=== PATIENT | female | born 1980 | race Caucasian/White ===

== ENCOUNTER 2019-01-07 11:27 | Day surgery (SDC) | payer BC ==
[2019-01-07 12:13] VITALS: BP 124/78; TEMP 98.5; BMI 55.2
[2019-01-07] MEDS ORDERED: Dextrose 5%-Lactated Ringers 1,000 ML IV SCH (12:45)
[2019-01-07] MEDS ORDERED: Ondansetron PF 4 MG/2 ML Vial IVP SCH (12:45)
[2019-01-07] MEDS ORDERED: Thiamine HCl 200 MG/2 ML VIAL SLOW IVP SCH (12:45)
--- NOTE | 2019-01-07 13:19 | HP ---
TIME OF EVALUATION: 12:30 until 12:49. LOCATION: L and D in antepartum bed 2. This is a patient of Dr. Blakely. REASON FOR EVALUATION: Nausea and vomiting times this morning at 35 weeks. HISTORY OF PRESENT ILLNESS: This is a 38-year-old G2, P1, with an EDC of February 11, who is currently at 35 weeks. Her first delivery was by at 39 weeks due to being breech and having preeclampsia. She arrives now for evaluation for nausea, vomiting, and some diarrhea since about 5 o'clock this morning. She has no vaginal bleeding or leakage of fluid. She states good movement. She denies any fevers at home or chills. She denies any emesis containing blood. REVIEW OF SYSTEMS: Complete review of systems was checked and is otherwise negative unless specified in the HPI. PAST MEDICAL HISTORY: She has a history of asthma as a child, but no acute exacerbations recently. PAST SURGICAL HISTORY: Significant only for the . ALLERGIES: NONE. SOCIAL HISTORY: Negative for alcohol, tobacco, or drug use. FAMILY HISTORY: Otherwise, noncontributory. PHYSICAL EXAMINATION: VITAL SIGNS: Her temperature is 98.5, blood pressure is 124/78, pulse is 109, and respirations are 18. GENERAL: Clinically, she is in no acute distress. She is conversive and without acute decompensation. ABDOMEN: Large/obese, but it is nontender. There is no rebound or rigidity. PELVIC: Deferred as there is no evidence of labor. On monitoring, the nonstress test is reactive with a heart rate of about 130 to 150s. There were no contractions on tocodynamometer. On pelvic exam, pelvic exam was deferred as there is no evidence of labor, but there is no gross clinical evidence of rupture of membranes or vaginal bleeding. ASSESSMENT: This is a 38-year-old, G2, P1, at 35 weeks, who desires a trial of labor after with Dr. Blakely when labor occurs. There is no evidence of current labor. She does have nausea and vomiting since this morning and is here for evaluation. She has no other sick contacts or history of foreign travel. PLAN: 1. I have ordered a CBC and a CMP. 2. I have ordered a cath UA to rule out any bacteriuria as an atypical presentation, and also to check her ketones. 3. I have ordered her for D5 LR, IV fluid hydration and I have also ordered a one-time dose of thiamine slow of IV push to go with her D5 LR. 4. I have ordered her Zofran as p.r.n. medication. 5. The patient does not appear clinically ill and does not appear to be in eminent labor. 6. I anticipate sending the patient home as long as her laboratory data reveals no acute abnormality. Job ID: [id number]
[2019-01-07 13:45] LABS: Hemoglobin 12.4 g/dL (12.0-16.0); Mean Corpuscular Hemoglobin 25.3 pg (27.0-31.0); Mean Platelet Volume 8.4 fL (7.4-10.4); Platelet Count 250 thou/uL (130-400); RBC Distribution Width 14.3 % (11.5-14.5); Red Blood Cell (RBC) Count 4.88 mill/uL (4.20-5.40); White Blood Cell (WBC) Count 15.2 thou/uL (4.8-10.8)
[2019-01-07 14:03] LABS: Bilirubin Negative (Negative); Blood, Urine Negative (Negative); Clarity CLEAR (Clear); Glucose, Urine (Dipstick) Negative (Negative); Leukocyte Negative (Negative); Nitrite Negative (Negative); Protein, Urine (Dipstick) Negative (Neg-Trace); Specific Gravity, Urine 1.025 (1.002-1.036)
--- NOTE | 2019-01-07 14:06 | PDOC.EVN ---
Event Note - Event Note Event Note: D5LR given and feels better..1 liter Thiamine pending CBC with mild luecocytosis CMP and urine still pending in lab
[2019-01-07 14:13] LABS: ALT (SGPT) 13 U/L (8-55); AST (SGOT) 17 U/L (5-34); Albumin 3.3 g/dL (3.5-5.0); Alkaline Phosphatase 135 U/L (40-150); Anion Gap 15 mmol/L (10-20); BUN (Urea Nitrogen) 11 mg/dL (7.0-18.7); Bilirubin, Total 0.5 mg/dL (0.2-1.2); Calc. Creatinine Clearance 232 mL/min (70-130); Calcium 9.3 mg/dL (7.8-10.44); Carbon Dioxide 20 mmol/L (22-29); Chloride 104 mmol/L (98-107); Estimated GFR-MDRD 83; Globulin 3.3 g/dL (2.4-3.5); Glucose 161 mg/dL (70-105); Potassium 4.3 mmol/L (3.5-5.1); Protein, Total 6.6 g/dL (6.0-8.3); Sodium 135 mmol/L (136-145)
[2019-01-07 14:22] LABS: Bacteria/HPF None Seen HPF (None Seen); Hyaline Casts/LPF NONE SEEN LPF (0-3 Hyaline); RBC/HPF 0-3 HPF (0-3); Squamous Epithelial 0-3 HPF (0-3); WBC/HPF 0-3 HPF (0-3)
[2019-01-07 14:23] LABS: Urine Culture Reflex No No
--- NOTE | 2019-01-07 14:45 | PDOC.EVN ---
Event Note - Event Note Event Note: CMP ok Mod ketones on UA and can tolerate ice As she feels better, ok for outpatient care. Possible gastroenteritis Home on no meds as well now
== END 2019-01-07 16:20 | disposition home or self-care (01) ==
LOC: L&D/OP 11:27
PROVIDERS: ATTEND Obstetrics & Gynecology
DX: O21.2 Late vomiting of pregnancy (principal); O99.513 Diseases of the respiratory system complicating pregnancy, third trimester; J45.909 Unspecified asthma, uncomplicated; Z3A.35 35 weeks gestation of pregnancy
CPT/HCPCS: 36415; 51701; 80053; 81001; 85027; 96360; 96361; 96375; 99283; J2405; J3411

== ENCOUNTER 2019-02-02 05:30 | Inpatient (IN) | payer BC ==
[2019-02-02 06:35] VITALS: BMI 55.7
[2019-02-02] MEDS: Lactated Ringer's 1,000 ML IV SCH ×2 (07:15→14:44)
[2019-02-02] MEDS ORDERED: Acetaminophen 500 MG TAB PO PRN (09:05)
[2019-02-02] MEDS ORDERED: Lidocaine 1% (PF) 30 ML VIAL SC PRN (09:05)
[2019-02-02] MEDS ORDERED: Diphenoxylate HCl/Atropine Tablet PO PRN ×2 (09:05)
[2019-02-02] MEDS ORDERED: Carboprost 250 MCG/ML AMP IM PRN (09:05)
[2019-02-02] MEDS ORDERED: Butorphanol Tartrate 1 MG/ML VIAL SLOW IVP PRN (09:05)
[2019-02-02] MEDS ORDERED: Misoprostol 200 MCG TAB PR PRN (09:05)
[2019-02-02] MEDS ORDERED: Ibuprofen 800 MG TAB PO PRN (09:05)
[2019-02-02] MEDS ORDERED: Promethazine HCl 25 MG/ML VIAL IM PRN ×2 (09:05→18:27)
[2019-02-02] MEDS ORDERED: Ondansetron PF 4 MG/2 ML Vial IVP PRN ×2 (09:05→18:27)
[2019-02-02] MEDS ORDERED: hydrALAZINE 20 MG/ML VIAL SLOW IVP PRN (09:05)
[2019-02-02] MEDS ORDERED: HYDROcodone/Acetaminophen 5/325 mg Tablet PO PRN ×2 (09:05)
[2019-02-02] MEDS ORDERED: NS / Oxytocin 40 units/1000ml 1,000 ML IV PRN (09:05)
--- NOTE | 2019-02-02 09:11 | PDOC.LDHP ---
Labor and Delivery H&P Chief complaint: scheduled induction HPI: 38 y/0 at 38 and 5/7 wks for TOLAC with CHTN, Morbid Obesity. Due date: 02/11/19 Grav: 2 Para: 1 Current complications: hypertension, other (Morbid Obesity) Current medications: pre-javad vitamins Previous surgical history: low tranverse CS Allergies/Adverse Reactions: Allergies Allergy/AdvReac Type Severity Reaction Status Date / Time No Known Allergies Allergy Unverified 01/07/19 12:13 - Physical Exam Vital signs reviewed and normal: yes General: NAD Heart: RRR Lungs: CTAB Abdomen: NTTP Extremeties: no edema FHT: category 1 - Vaginal Exam cm dilated: 3 - Assessment L&D Assessment: medically indicated induction - Plan Plan: admit to L&D, labor augmentation if indicated
[2019-02-02] MEDS ORDERED: Penicillin G Potassium 5 MILL.UNITS in Sodium Chloride 0.9% 100 ML IVPB SCH (09:15)
[2019-02-02] MEDS ORDERED: NS w/ Oxytocin 10 units 500 ML IV SCH ×2 (09:15)
[2019-02-02 09:39] LABS: Hemoglobin 10.9 g/dL (12.0-16.0); Mean Corpuscular HGB CONC 32.2 g/dL (32.0-36.0); Mean Corpuscular Volume 77.6 fL (78.0-98.0); Mean Platelet Volume 9.3 fL (7.4-10.4); Platelet Count 219 thou/uL (130-400); RBC Distribution Width 14.7 % (11.5-14.5); Red Blood Cell (RBC) Count 4.38 mill/uL (4.20-5.40); White Blood Cell (WBC) Count 10.5 thou/uL (4.8-10.8)
[2019-02-02 10:16] LABS: HBSAg Index 0.29 S/CO (0-0.99); Hep B Surf Ag Non-Reactive S/CO (NonReactive)
[2019-02-02 10:17] LABS: Syphilis Antibody Nonreactive (Nonreactive); Syphilis Antibody Index 0.02 S/CO (<1.00 Non-Reactive)
--- NOTE | 2019-02-02 11:18 | PDOC.EVN ---
Event Note - Event Note Event Note: 02/02/2019 Time of evaluation: 10:05am-10:10am Reason for evaluation: assessment for AROM, requested by Dr. Blakely Course of events: Called in to [facility] to assess AROM. Pt is a morbidly obese, scheduled for induction as a TOLAC. First C section was unstable lie intrapartum. On exam, station was at least -2 with floating presentation. This was confirmed by Mallika, our labor nurse. Due to high station we elected not to perform AROM at this time. Pt given options again as TOLAC versus repeat section with final decision to be made by her and her primary physician.
[2019-02-02] MEDS ORDERED: Ondansetron PF 4 MG/2 ML Vial ONE ×3 (12:23→19:15)
[2019-02-02] MEDS ORDERED: PHENYLEPHRINE-NS 100 MCG/ML 10 ML SYRINGE ONE (12:23)
[2019-02-02] MEDS ORDERED: ePHEDrine 50 MG/ML VIAL ONE (12:23)
[2019-02-02] MEDS ORDERED: Metoclopramide HCl 10 MG/2 ML VIAL ONE ×2 (12:23→20:07)
[2019-02-02] MEDS ORDERED: Acetaminophen 1,000 MG in Premix Bag 1 BAG IVPB PRN (18:26)
[2019-02-02] MEDS ORDERED: diphenhydrAMINE 50 MG/ML VIAL IVP PRN (18:27)
[2019-02-02] MEDS ORDERED: Naloxone HCl 0.4 mg/ml Vial IV PRN (18:27)
[2019-02-02] MEDS ORDERED: Ondansetron HCl/PF 4 MG/2 ML Vial IVP PRN (18:27)
[2019-02-02] MEDS ORDERED: Promethazine HCl 25 MG SUPP PR PRN (18:27)
[2019-02-02] MEDS ORDERED: Naloxone HCl 0.4 mg/ml Vial IVP PRN ×2 (18:27)
[2019-02-02] MEDS ORDERED: Communication Order-Pharmacy FS SCH (18:30)
[2019-02-02] MEDS ORDERED: Ketorolac Tromethamine 30 MG/ML VIAL IVP SCH (18:30)
[2019-02-02] MEDS ORDERED: Fentanyl 100 MCG/2 ML VIAL ONE (19:11)
[2019-02-02] MEDS ORDERED: Phenylephrine HCL 10 MG/ML VIAL ONE ×2 (19:12→19:40)
[2019-02-02] MEDS ORDERED: Oxytocin 10 UNITS/ML VIAL ONE (19:12)
[2019-02-02] MEDS ORDERED: MORPHINE 5 MG/10 ML PF VIAL ONE (19:12)
[2019-02-02] MEDS ORDERED: ePHEDrine/0.9% NaCl/PF SYRINGE 50 mg/10 ml ONE (19:36)
[2019-02-02] MEDS: Penicillin G 2.5 MILL.units 2.5 MILL.UNITS in Premix Bag 1 BAG IVPB SCH ×2 (21:51→21:52)
[2019-02-02] MEDS ORDERED: Bicitra 30 ML UDCUP PO SCH (22:00)
[2019-02-02] MEDS: Ketorolac Tromethamine 30 MG/ML VIAL IVP SCH (22:33)
[2019-02-02] MEDS ORDERED: Ketorolac Tromethamine 30 MG/ML VIAL ONE (22:33)
[2019-02-03] MEDS: CEFAZOLIN 2 GM in Premix Bag 1 BAG IVPB SCH ×3 (01:47→17:24)
[2019-02-03] MEDS ORDERED: CEFAZOLIN 1 GM VIAL SLOW IVP SCH (02:00)
[2019-02-03] MEDS: Ketorolac Tromethamine 30 MG/ML VIAL IVP SCH ×4 (04:57→23:00)
[2019-02-03] MEDS: Enoxaparin Sodium 40 MG/0.4 ML SYRINGE SC SCH (04:59)
[2019-02-03] MEDS ORDERED: HYDROcodone/Acetaminophen 5/325 mg Tablet PO PRN ×2 (07:03)
[2019-02-03] MEDS ORDERED: Zolpidem Tartrate 5 MG TAB PO PRN (07:03)
[2019-02-03] MEDS ORDERED: diphenhydrAMINE 25 MG CAP PO PRN (07:03)
[2019-02-03] MEDS ORDERED: Bisacodyl 10 MG SUPP PR PRN (07:03)
[2019-02-03] MEDS ORDERED: Simethicone Chewable 80 MG TAB PO PRN (07:03)
[2019-02-03] MEDS ORDERED: Promethazine HCl 25 MG/ML VIAL IM PRN (07:03)
[2019-02-03] MEDS ORDERED: hydrALAZINE 20 MG/ML VIAL SLOW IVP PRN (07:03)
[2019-02-03] MEDS ORDERED: Ondansetron PF 4 MG/2 ML Vial IVP PRN (07:03)
[2019-02-03] MEDS ORDERED: Varicella virus, LIVE 0.5 ML VIAL SC ONE (07:03)
[2019-02-03] MEDS ORDERED: Adacel (T-DAP) 0.5 ML SYRINGE IM ONE (07:03)
[2019-02-03] MEDS ORDERED: Lanolin Ointment 7 GM TUBE TOP PRN (07:03)
[2019-02-03] MEDS ORDERED: Measles/Mumps/Rubella 10 MCG/0.5 ML VIAL SC ONE (07:03)
[2019-02-03] MEDS ORDERED: NS / Oxytocin 40 units/1000ml 1,000 ML IV SCH (07:15)
[2019-02-03 08:29] LABS: Hemoglobin 10.2 g/dL (12.0-16.0); Mean Corpuscular HGB CONC 31.9 g/dL (32.0-36.0); Mean Corpuscular Hemoglobin 24.7 pg (27.0-31.0); Mean Corpuscular Volume 77.6 fL (78.0-98.0); Mean Platelet Volume 8.4 fL (7.4-10.4); Platelet Count 200 thou/uL (130-400); RBC Distribution Width 14.9 % (11.5-14.5); Red Blood Cell (RBC) Count 4.13 mill/uL (4.20-5.40); White Blood Cell (WBC) Count 11.7 thou/uL (4.8-10.8)
[2019-02-03] MEDS: Docusate Calcium (SURFAK) 240 MG CAP PO SCH ×2 (09:03→23:00)
[2019-02-03] MEDS: Ibuprofen 800 MG TAB PO SCH (14:37)
--- NOTE | 2019-02-03 19:23 | PDOC.PP ---
Post Progress Note Post Day #: 1 PO intake tolerated: yes Flatus: yes Ambulation: yes Vital Signs (12 hours) Temp Pulse Resp BP 02/03/19 16:39 98.4 F 85 20 128/60 02/03/19 11:33 98.5 F 82 20 126/59 L Weight Weight 335 lb - Physical Examination General: NAD Cardiovascular: no m/r/g, RRR Respiratory: clear to auscultation bilaterally, non-labored breathing Abdominal: + bowel sounds, lochia, no distention, appropriately TTP Extremities: negative homans (B) Skin: CS incision dry & intact, no rash Neurological: no gross focal deficits Psychiatric: A&Ox3, normal affect Result Diagrams: 02/03/19 08:10 Additional Labs: Post Labs Blood Type A POSITIVE 02/02/19 09:21 Hep Bs Antigen Non-Reactive S/CO (NonReactive) 02/02/19 09:21
[2019-02-04] MEDS: Ibuprofen 800 MG TAB PO SCH ×3 (01:16→14:05)
[2019-02-04] MEDS: Enoxaparin Sodium 40 MG/0.4 ML SYRINGE SC SCH (05:12)
[2019-02-04] MEDS: Ketorolac Tromethamine 30 MG/ML VIAL IVP SCH ×2 (06:02→14:06)
[2019-02-04] MEDS: Docusate Calcium (SURFAK) 240 MG CAP PO SCH (08:44)
[2019-02-04 16:37] VITALS: TEMP 98.2
--- NOTE | 2019-02-04 18:57 | PDOC.PP ---
Post Progress Note Post Day #: 2 PO intake tolerated: yes Flatus: yes Ambulation: yes Vital Signs (12 hours) Temp Pulse Resp BP Pulse Ox 02/04/19 16:37 98.2 F 92 20 137/71 02/04/19 12:14 98.1 F 89 20 144/68 H 02/04/19 08:26 98.1 F 93 20 134/64 97 Weight Weight 335 lb - Physical Examination General: NAD Cardiovascular: no m/r/g, RRR Respiratory: clear to auscultation bilaterally, non-labored breathing Abdominal: + bowel sounds, lochia, no distention Extremities: negative homans (B) Neurological: no gross focal deficits Psychiatric: A&Ox3, normal affect Result Diagrams: 02/03/19 08:10 Additional Labs: Post Labs Blood Type A POSITIVE 02/02/19 09:21 Hep Bs Antigen Non-Reactive S/CO (NonReactive) 02/02/19 09:21
[2019-02-04 20:24] VITALS: BP 135/71
--- NOTE | 2019-02-05 01:10 | OP ---
DATE OF PROCEDURE: 02/02/2019 TIME: At 2002 hours [facility] time. PREOPERATIVE DIAGNOSIS: Intrauterine at 38 weeks who presents for induction of labor, desiring a trial of labor after section. The patient was unsuccessful with vaginal and decided to pursue section after being admitted for 8 hours. She went on to undergo a repeat low-transverse section using a Pfannenstiel skin incision without difficulty. POSTOPERATIVE DIAGNOSES: Intrauterine at 38 weeks who presents for induction of labor, desiring a trial of labor after section. The patient was unsuccessful with vaginal and decided to pursue section after being admitted for 8 hours. She went on to undergo a repeat low-transverse section using a Pfannenstiel skin incision without difficulty. Multiple uterine lesions which may suggest uterine fibroids. Definitive diagnosis could not be done grossly. PROCEDURES PERFORMED: 1. Repeat low-transverse section. 2. Myomectomy. ESTIMATED BLOOD LOSS: 475 mL. FINDINGS: 1. Viable male infant weighing 3714 g or 8 pounds 3 ounces with Apgars of 8 and 9. 2. Multiple uterine lesions, the largest of which was excised and sent to pathology for permanent section. My suspicion is that this represents a uterine fibroid, but I cannot be sure by gross examination. COMPLICATIONS: None. DETAILS OF THE PROCEDURE: The patient was consented and taken back to the operating room where spinal anesthesia was found to be adequate. She was then prepped and draped in the normal sterile fashion. A timeout was performed by the entire operative team. The incision was then marked with a marking pen tested using sharp pickups. An incision was then made with a scalpel. The incision was carried through the adipose tissue down to the underlying rectus fascia using both sharp dissection as well as cautery. Once the fascia was identified, it was incised in the midline and then the fascial incision was carried through in both lateral directions using sharp as well as cautery dissection techniques. Next, the superior aspect of the rectus fascia was grasped with 2 Paulo clamps, which was tented up and the rectus muscles were dissected off using blunt dissection as well as cautery dissection. Similarly, the inferior aspect of the fascial incision was grasped with 2 Paulo clamps, tented up and the rectus muscles were dissected off bluntly as well as sharply. Next, the rectus muscles were in the midline and the peritoneum identified. The peritoneum was then carefully grasped with 2 hemostats and entered sharply. The peritoneal incision was extended superiorly and inferiorly and bladder blade was placed in the lower abdomen. At this point, the uterus was identified and the bladder flap was then developed using pickups with teeth as well as Metzenbaum scissors in both lateral directions. The bladder flap was then dissected downwards using the customer service operator's finger as well as Metzenbaum scissors. The bladder blade was replaced. The lower uterine segment was then identified and entered sharply using a clean scalpel. The uterine incision was then dissected downwards until thin layer of muscle remained and this was entered bluntly using a hemostat to avoid any injury to the baby. The uterine incision was then stretched using two fingers in both lateral directions. An amniotomy was performed artificially using a hemostat and the baby was delivered using fundal pressure in a gentle fashion. Once out, the baby's mouth and nose were bulb suctioned, cord clamped and cut, and the baby was handed to waiting attendants. Next, the uterus was exteriorized, cleared of all clots and debris and the uterine incision was repaired with #1 Monocryl in a running locking fashion. A 2nd suture of the same type was used to obtain complete hemostasis at the uterine incision. The bladder flap was reapproximated using 3-0 Monocryl. Next, patient's left and right adnexa were inspected and appeared to be within normal limits. The posterior cul-de-sac was blotted dry and hemostasis assured. One more look at the uterine incision demonstrated hemostasis. Next, the uterus was replaced back within the abdomen. The peritoneum was reapproximated using 2-0 Monocryl without difficulty. The rectus muscles were then allowed to come back together and 0 chromic was used to aid in reapproximation of the muscle as necessary. The rectus fascia was then reapproximated in a running fashion using 0 Vicryl suture. The adipose tissue was then examined and appeared to be well approximated without any obvious separations. Finally, the skin was reapproximated with 3-0 Monocryl on a Steven needle without difficulty and Dermabond adhesive was applied to the skin. Once the glue was dry, the drapes were removed and the patient was transferred to an ambulatory bed where she was taken to recovery awake and in stable condition. Sponge, lap, and needle counts were correct x3. Following the closure of the uterus, multiple lesions that were subserosal were identified, they all look quite similar just varying in size. The largest of these was then excised using sharp as well as Bovie cautery. The area was then cauterized and repaired with a running locking suture of 2-0 chromic. A 2nd suture was used to obtain hemostasis. Job ID: [id number]
== END 2019-02-04 20:20 | disposition home or self-care (01) | DRG 787 ==
LOC: L&D 05:55 → 3SW 23:20
PROVIDERS: ADMIT Obstetrics & Gynecology; ATTEND Obstetrics & Gynecology
PROC: 10D00Z1 Extraction of Products of Conception, Low, Open Approach (ICD-10-PCS; principal; 2019-02-02)
PROC: 3E033VJ Introduction of Other Hormone into Peripheral Vein, Percutaneous Approach (ICD-10-PCS; 2019-02-02)
DX: O34.211 Maternal care for low transverse scar from previous cesarean delivery (principal); O10.92 Unspecified pre-existing hypertension complicating childbirth; O99.214 Obesity complicating childbirth; E66.01 Morbid (severe) obesity due to excess calories; O34.13 Maternal care for benign tumor of corpus uteri, third trimester; D25.9 Leiomyoma of uterus, unspecified; Z3A.38 38 weeks gestation of pregnancy; Z37.0 Single live birth; O66.41 Failed attempted vaginal birth after previous cesarean delivery
CPT/HCPCS: 36415; 51702; 85027; 86780; 86850; 86900; 86901; 87340; 88305; J0690; J1650; J1885; J2274; J2370; J2405; J2540; J2590; J2765; J3010; J3490

== ENCOUNTER 2019-02-08 20:11 | Inpatient (IN) | payer BC ==
[2019-02-08 21:18] LABS: #Eosinphils 0.2 thou/uL (0.0-0.7); #Lymphocytes 1.9 thou/uL (1.20-3.40); #Monocytes 0.6 thou/uL (0.11-0.59); #Neutrophils 7.6 thou/uL (1.40-6.50); %Basophils 0.2 % (0.0-1.0); %Eosinophils 2.4 % (0.0-10.0); %Lymphocytes 18.3 % (21.0-51.0); %Monocytes 5.5 % (0.0-10.0); %Neutrophils 73.7 % (42.0-75.0); Hemoglobin 10.9 g/dL (12.0-16.0); Mean Corpuscular HGB CONC 32.3 g/dL (32.0-36.0); Mean Corpuscular Hemoglobin 25.3 pg (27.0-31.0); Mean Corpuscular Volume 78.3 fL (78.0-98.0); Mean Platelet Volume 7.7 fL (7.4-10.4); Platelet Count 361 thou/uL (130-400); RBC Distribution Width 14.8 % (11.5-14.5); Red Blood Cell (RBC) Count 4.32 mill/uL (4.20-5.40); White Blood Cell (WBC) Count 10.2 thou/uL (4.8-10.8)
[2019-02-08 21:40] LABS: Albumin 3.5 g/dL (3.5-5.0); Anion Gap 14 mmol/L (10-20); BUN (Urea Nitrogen) 11 mg/dL (7.0-18.7); Bilirubin, Total 0.3 mg/dL (0.2-1.2); Calc. Creatinine Clearance 0 mL/min (70-130); Calcium 8.8 mg/dL (7.8-10.44); Carbon Dioxide 24 mmol/L (22-29); Chloride 106 mmol/L (98-107); Estimated GFR-MDRD 80; Globulin 3.1 g/dL (2.4-3.5); Glucose 101 mg/dL (70-105); Potassium 3.8 mmol/L (3.5-5.1); Protein, Total 6.6 g/dL (6.0-8.3); Sodium 140 mmol/L (136-145); Uric Acid 5.6 mg/dL (2.6-6.0)
[2019-02-08 21:41] LABS: ALT (SGPT) 21 U/L (8-55); AST (SGOT) 19 U/L (5-34); Alkaline Phosphatase 112 U/L (40-150)
[2019-02-08] MEDS ORDERED: Labetalol HCl 100 MG/20 ML VIAL ONE (22:13)
[2019-02-08] MEDS ORDERED: Magnesium Sulfate 4 GM in Sodium Chloride 0.9% 250 ML 250 ML IVPB SCH (22:30)
[2019-02-08 22:33] LABS: Bilirubin Negative (Negative); Blood, Urine Large (Negative); Clarity CLEAR (Clear); Glucose, Urine (Dipstick) Negative (Negative); Leukocyte Trace (Negative); Nitrite Negative (Negative); Protein, Urine (Dipstick) Negative (Neg-Trace)
[2019-02-08 22:38] LABS: Bacteria/HPF None Seen HPF (None Seen); Hyaline Casts/LPF 0-3 HYALINE CAST LPF (0-3 Hyaline); Pathc Cast-AUWi Flag 0.68 (0-2.49); RBC/HPF 21-50 HPF (0-3); Squamous Epithelial 0-3 HPF (0-3); WBC/HPF 0-3 HPF (0-3)
[2019-02-08] MEDS ORDERED: Calcium Gluconate 4.6 MEQ in Sodium Chloride 0.9% 100 ML IVPB PRN (23:01)
--- NOTE | 2019-02-08 23:07 | PDOC.LDHP ---
Labor and Delivery H&P Chief complaint: other (Increased BPs at home) HPI: Patient of Dr Blakely Cc: Postartum 6 days severe BPs in ED (was initiallu 199/100) HPI: I just received a call ([phone]) from the ED PA regarding Ms Myers. She is a 38 yo with morbid obesity, s/p CS after deciding not to TOLAC on 02/02/19. Past HX CHTN. Was on procardia 30mg given recently by lion. In ED, she recieved 10mg SIVP x 1 of labetolol with follow up BP 158/90. Otherwise was well. OB History Details: Postop CS 6 days...CS (repeat) on 02/02 Current complications: preeclampsia with severe features (severe by inital BP in ED) Current medications: other (procardia 30mg) Allergies/Adverse Reactions: Allergies Allergy/AdvReac Type Severity Reaction Status Date / Time No Known Allergies Allergy Unverified 01/07/19 12:13 Social history: none - Physical Exam Abnormal vital signs: 158/90 in ED after IV labetolol General: NAD Heart: RRR Lungs: CTAB - Assessment Postop CS 6 days with severe range BPs...s/p labetolol in ED. Labs drawn there were wnl (nl LFTs, nl platelts, normal Cr). - Plan Plan: observation in L&D (We will bring to L&D now (report given by me to the L* D charge authorizer): start Mag. Lower BPs per protocol for any BPs over 160/110. Overnight OBS. [facility] notified by [facility].), magnesium for seizure prophylaxis
[2019-02-08] MEDS ORDERED: Magnesium Sulfate 20 GM/WATER 500 ML BAG IVPB SCH (23:15)
[2019-02-08 23:49] VITALS: BMI 54.5
[2019-02-08 23:50] VITALS: TEMP 98.4
[2019-02-09] MEDS ORDERED: hydrALAZINE 20 MG/ML VIAL ONE (01:03)
[2019-02-09] MEDS: Magnesium Sulfate 20 gm/500 ml 20 GM/500 ML BAG IVPB SCH ×2 (07:27→16:06)
[2019-02-09] MEDS ORDERED: Lactated Ringer's 1,000 ML IV SCH (08:00)
[2019-02-10] MEDS ORDERED: NIFEdipine XL 60 MG TAB PO SCH (03:00)
[2019-02-10 08:55] VITALS: BP 139/74
[2019-02-10] MEDS ORDERED: hydrALAZINE 20 MG/ML VIAL ONE (09:20)
[2019-02-10] MEDS ORDERED: hydrALAZINE 20 MG/ML VIAL SLOW IVP SCH (09:30)
--- NOTE | 2019-02-10 09:35 | PDOC.EVN ---
Event Note - Event Note Event Note: Time: 92402/10/19 Antepartum bed 1 bedside eval (requested by Dr. Blakely) pt was admitted on 02/08/19 at 2300 for BP management Mg was stopped last night at 2300. at [address] Blakely ordered Procardia in response to BP elevation. Also received scheduled Procardia 60 mg XL this morning at 0900. I was asked to see her for possible d/c this morning. At bedside BP was 169/83. pt wants to go home as soon as possible. Discussed with pt and decided to give 5 mg hydralazine slow IV push and BP obs until 1600 today. Reassess BP at that time for d/c. update given to Dr. Blakely via [place] text. S: pt , feeling well. wants to go home. O: elevated BP as above Ab: Incision checked C/D/I, sutured with dermabond over incision. obese abdomen. A: / post op c section 1 week ago. likely some component of HTN. Under medical control. P: cont. obs BP until 1600 today
--- NOTE | 2019-02-10 15:31 | PDOC.EVN ---
Event Note - Event Note Event Note: DISCHARGE NOTE @1530 L&D antepartum bed 1 Admit Date: 02/08/19 Discharge Date: 02/09/[address] Seymour Diagnosis: /post one week hypertension Procedures: Magnesium Sulfate Course: Patient of Dr seymour, admitted via ED for BP severe range approximately 6 days post CS for unsuccessful TOLAC. She was quickly transfered to L&D where I began magnesium sulfate. care turned over to Dr Seymour.Labs were normal. She did receive labetolol for BP management, IV. Dr Seymour stopped the magnesium late PM on 02/09/19. At request of Dr Seymour, I saw her 02/10/19 AM for possible DC to home. She states that while most BPs are 150/90s, the isolated highh BPs at 160s were when she was with arm bent. I evaluated the incision 02/10/19 and it was healing well. Has had bowel movements and urinating well. Tolerating po. I discussed continued inhouse observation but she declined, wishing to go home this PM. We compromised and awaited 1600 discharge. This was related to Dr Seymour. Discharge Medications: Dr Seymour has prescribed procardia 60mg XL as home meds. She does not have symptoms of severe preeclampsia. She will follow up with him Friday next week.
[2019-02-11] MEDS ORDERED: NIFEdipine XL 60 MG TAB PO SCH (09:00)
== END 2019-02-10 16:02 | disposition home or self-care (01) | DRG 776 ==
LOC: ERS 20:11 → L&D 23:37
PROVIDERS: ADMIT Obstetrics & Gynecology; ATTEND Obstetrics & Gynecology
DX: O10.93 Unspecified pre-existing hypertension complicating the puerperium (principal); O99.215 Obesity complicating the puerperium; E66.01 Morbid (severe) obesity due to excess calories
CPT/HCPCS: 36415; 80053; 81003; 81015; 83735; 84550; 85025; J0360; J3475; J7050

== ENCOUNTER 2022-12-19 13:19 | Outpatient (CLI) | payer BC | END 2022-12-19 13:20 | disposition home or self-care (01) | LOC: BICULT 13:19 | PROVIDERS: ATTEND Family Medicine | DX: N92.1 Excessive and frequent menstruation with irregular cycle (principal) | CPT/HCPCS: 76856 ==

== ENCOUNTER → 2023-07-01 | Outpatient (CLI) | payer BC | LOC: PET 11:45 | PROVIDERS: ATTEND Internal Medicine Hematology & Oncology | DX: C53.8 Malignant neoplasm of overlapping sites of cervix uteri (principal); C78.00 Secondary malignant neoplasm of unspecified lung; C78.7 Secondary malignant neoplasm of liver and intrahepatic bile duct; C78.6 Secondary malignant neoplasm of retroperitoneum and peritoneum | CPT/HCPCS: 78815; A9552 ==